=== PATIENT | male | born 1995 | race Caucasian/White ===

== ENCOUNTER 2022-05-05 12:14 | Emergency (ER) | payer OTHER, SELFPAY ==
--- NOTE | ~2022-05-05 | XR_ITS ---
EXAMINATION: XR HAND, RIGHT CLINICAL INFORMATION: Foreign body of right hand. COMPARISON: None available. TECHNIQUE: PA, lateral, and oblique views of the right hand. FINDINGS: Bones, joints and soft tissues the right hand are unremarkable. No evidence of a radiopaque foreign body or soft tissue gas. No fracture or subluxation in the hand or wrist. Incidentally noted is 0.5 cm of ulna negative variance XR/XR hand RT 2V IMPRESSION: * There are no radiographically visible foreign bodies. * No acute osseous injury.
[2022-05-05 12:19] VITALS: BP 155/95; PULSE 67; RESP 18; TEMP 36.6; O2SAT 98; BMI 35.8
--- NOTE | 2022-05-05 12:20 | ED.UPPEXIN ---
HPI - Extremity Injury (Upper) General Chief Complaint: Wound/Laceration <ANTHONY Denton Last Filed: 05/05/22 12:22> Stated Complaint: Wood chip in hand <ANTHONY Denton - Last Filed: 05/05/22 12:22> Time Seen by Provider: 05/05/22 12:24 <ANTHONY Denton - Last Filed: 05/05/22 12:22> Source: patient and RN notes reviewed <ANTHONY Chicas Last Filed: 05/05/22 14:16> Mode of arrival: ambulatory <ANTHONY Chicas Last Filed: 05/05/22 14:16> Limitations: no limitations <ANTHONY Chicas Last Filed: 05/05/22 14:16> History of Present Illness HPI narrative: This is a 27-year-old male presents to the emergency department today with complaints of a new foreign body in his right hand since today. Patient reports that while he was working today, a large splinter became lodged into his right hand. He states that the wood chip went through his hand, he tried to remove the splinter however upon each attempt he fell pain shooting down into the fingertips of his right 2nd finger. He states that this browning is pressure treated. He is able to move his right hand and his right 2nd digit without any complications. No other complaints or concerns at this time. <ANTHONY Chicas - Last Filed: 05/05/22 14:16> MD complaint: injury to: hand <ANTHONY Chicas Last Filed: 05/05/22 14:16> Onset (ago): hour(s) <ANTHONY Chicas Last Filed: 05/05/22 14:16> Other injuries: none <ANTHONY Chicas Last Filed: 05/05/22 14:16> Handedness: right <ANTHONY Chicas Last Filed: 05/05/22 14:16> Place: work <ANTHONY Chicas Last Filed: 05/05/22 14:16> Severity: moderate <ANTHONY Chicas Last Filed: 05/05/22 14:16> Relieving factors: rest <ANTHONY Chicas - Last Filed: 05/05/22 14:16> Exacerbating factors: movement of extremity <ANTHONY Chicas - Last Filed: 05/05/22 14:16> Associated symptoms: suspects foreign body <ANTHONY Chicas - Last Filed: 05/05/22 14:16> Related Data Home Medications: Previous Rx's Medication Instructions Recorded amoxicillin 875 mg-potassium 1 tab PO BID 7 days #14 tabs 05/05/22 clavulanate 125 mg tablet <ANTHONY Denton - Last Filed: 05/05/22 12:22> Allergies/Adverse Reactions: Allergies Allergy/AdvReac Type Severity Reaction Status Date / Time No Known Allergies Allergy Verified 05/05/22 12:20 <ANTHONY Denton - Last Filed: 05/05/22 12:22> Review of Systems Review of Systems: Yes all other systems are reviewed and are negative <ANTHONY Chicas - Last Filed: 05/05/22 14:16> [facility] Social History Social History: Social History Advance Directives: No Advance Directives Information Provided: No <ANTHONY Denton - Last Filed: 05/05/22 12:22> Physical Exam Vital Signs: Vital Signs: Last Vital Signs Temp 98 F 05/05/22 12:19 Pulse 67 05/05/22 12:19 Resp 18 05/05/22 12:19 BP 155/95 H 05/05/22 12:19 Pulse Ox 98 05/05/22 12:19 BMI result Body Mass Index 35.8 <ANTHONY Denton - Last Filed: 05/05/22 12:22> Vital Signs: Last Vital Signs Temp 98 F 05/05/22 12:19 Pulse 67 05/05/22 12:19 Resp 18 05/05/22 12:19 BP 155/95 H 05/05/22 12:19 Pulse Ox 98 05/05/22 12:19 BMI result Body Mass Index 35.8 <ANTHONY Chicas - Last Filed: 05/05/22 14:16> Appearance: Alert. Oriented X3. No acute distress. HEENT: normal inspection Skin: Right hand, there is a a 3cm wood chip puncturing the palmar aspect, approximately 3cm inferiorly to the second proximal phalanx, no active bleeding or laceration noted. CVS: Normal heart rate and rhythm. Pulses normal. Respiratory: No respiratory distress. Skin: Skin warm and dry. Normal skin color. Normal skin turgor. No rashes. Neuro: Oriented X 3. No motor deficit. No sensory deficit. <ANTHONY Chicas - Last Filed: 05/05/22 14:16> Course Course Course Narrative: RME--27 yo M w/no sig PMHx c/o food stuck in right hand s/p moving lumber at work [employer]. States tried to get wood out on his own however was too painful. Last tetanus unknown. Small piece of wood sticking out of right hand palmar aspect between 1st and 2nd digit. Tender to palpation. Patient requesting area to be numbed X-ray, Lido, Tdap ordered <ANTHONY Denton - Last Filed: 05/05/22 12:22> Medications Administered Discontinued Medications Generic Name Dose Route Start Last Admin Trade Name Freq PRN Reason Stop Dose Admin Diphtheria/Tetanus/Acell Pertussis 0.5 ml 05/05/22 12:20 05/05/22 12:53 Diphth,Pertus(Acell),Tet Adult 0.5 Ml Syringe IM 05/05/22 12:21 0.5 ml .ONCE ONE Administration Lidocaine HCl 5 ml 05/05/22 12:20 05/05/22 12:53 Lidocaine Hcl 1 % Mpf 5 Ml Vial SUBCUT 05/05/22 12:21 5 ml ONCE ONE Administration <ANTHONY Denton - Last Filed: 05/05/22 12:22> Medications Administered Discontinued Medications Generic Name Dose Route Start Last Admin Trade Name Freq PRN Reason Stop Dose Admin Diphtheria/Tetanus/Acell Pertussis 0.5 ml 05/05/22 12:20 05/05/22 12:53 Diphth,Pertus(Acell),Tet Adult 0.5 Ml Syringe IM 05/05/22 12:21 0.5 ml .ONCE ONE Administration Lidocaine HCl 5 ml 05/05/22 12:20 05/05/22 12:53 Lidocaine Hcl 1 % Mpf 5 Ml Vial SUBCUT 05/05/22 12:21 5 ml ONCE ONE Administration <ANTHONY Chicas - Last Filed: 05/05/22 14:16> Medical Decision Making Medical Decision Making MDM Narrative: 27-year-old male presents to the emergency department for evaluation puncture wound to his right hand since today. X-rays show no visible foreign bodies, no acute osseous injury. Foreign body successfully removed from right hand, see procedure note. Patient tolerated procedure well without any complications or concerns. Tetanus immunization updated in department today. Will treat prophylactically with antibiotics to prevent secondary infection. Hand soaked in Betadine, hydrogen peroxide, and saline for 10 minutes post foreign body removal. Wound dressed with bacitracin and dry bandage. Advised to return with any signs of infection. Patient understands and agrees with plan. <ANTHONY Chicas - Last Filed: 05/05/22 14:16> Differential Diagnosis Differential Diagnoses: The differential diagnosis associated with the presentation includes <ANTHONY Chicas - Last Filed: 05/05/22 14:16> Foreign body, cellulitis, puncture wound, laceration <ANTHONY Chicas - Last Filed: 05/05/22 14:16> Independent Interpretation I performed an independent interpretation of an: Plain X-Ray <ANTHONY Chicas - Last Filed: 05/05/22 14:16> Interpretation: X-ray reviewed with no obvious foreign body, no bony abnormality. <ANTHONY Chicas Last Filed: 05/05/22 14:16> Radiology Impression Discussion of test interpretation with radiology: I have reviewed the radiologist's reading. <ANTHONY Chicas - Last Filed: 05/05/22 14:16> Radiologist Impression: EXAMINATION: XR HAND, RIGHT CLINICAL INFORMATION: Foreign body of right hand.? COMPARISON: None available.? TECHNIQUE: PA, lateral, and oblique views of the right hand. FINDINGS: Bones, joints and soft tissues the right hand are unremarkable. No evidence of a radiopaque foreign body or soft tissue gas. No fracture or subluxation in the hand or wrist. Incidentally noted is 0.5 cm of ulna negative variance? XR/XR hand RT 2V IMPRESSION: *? There are no radiographically visible foreign bodies. *? No acute osseous injury. <ANTHONY Chicas - Last Filed: 05/05/22 14:16> Prescription Management I considered prescription management with: Antibiotic <ANTHONY Chicas - Last Filed: 05/05/22 14:16> Procedures Foreign Body Removal Time Out Performed: yes <ANTHONY Chicas - Last Filed: 05/05/22 14:16> Site: right and hand <ANTHONY Chicas - Last Filed: 05/05/22 14:16> Description of foreign body: other (woodchip ) <ANTHONY Chicas - Last Filed: 05/05/22 14:16> Sedation/Analgesia: other (5cc 1% lidocaine) <ANTHONY Chicas - Last Filed: 05/05/22 14:16> Technique: removal with forceps <ANTHONY Chicas - Last Filed: 05/05/22 14:16> Confirmed by:: direct visualization and radiograph <ANTHONY Chicas - Last Filed: 05/05/22 14:16> Complications: none <ANTHONY Chicas - Last Filed: 05/05/22 14:16> Post-procedure exam: awake, alert <ANTHONY Chicas - Last Filed: 05/05/22 14:16> Neurovascular: normal distal pulse, normal capillary fill and distal light touch sensation intact <ANTHONY Chicas - Last Filed: 05/05/22 14:16> Critical Care Time Critical Care Time Critical Care Time: No <ANTHONY Chicas - Last Filed: 05/05/22 14:16> Discharge Plan Discharge Clinical Impression: Foreign body in hand, Puncture wound of hand <ANTHONY Denton Last Filed: 05/05/22 12:22> Patient Disposition: Home, Self-Care <ANTHONY Denton Last Filed: 05/05/22 12:22> Instructions: Puncture Wound (ED) <ANTHONY Denton - Last Filed: 05/05/22 12:22> Additional Instructions: Your x-rays showed no bony abnormalities. We successfully removed the wood chip from your right hand. You received an updated tetanus immunization. Keep wound clean and dry and watch for any signs of infection including but not limited to increased redness, swelling, fevers or chills. Take prescribed antibiotics as directed. If you develop new or worsening symptoms call 911 or come back to the ER for further evaluation. <ANTHONY Denton - Last Filed: 05/05/22 12:22> Prescriptions: New amoxicillin-pot clavulanate 875-125 mg tablet 1 tab PO BID 7 Days Qty: 14 0RF <ANTHONY Denton - Last Filed: 05/05/22 12:22> Interventions: ED Discharge Assessment Last Done: 05/05/22 13:42 <ANTHONY Denton - Last Filed: 05/05/22 12:22> Discharge Date/Time: 05/05/22 13:43 <ANTHONY Denton - Last Filed: 05/05/22 12:22>
[2022-05-05] MEDS: Lidocaine HCl 1 % MPF 5 ML VIAL SUBCUT (12:53)
[2022-05-05] MEDS: Diphth,Pertus(ACell),Tet Adult 0.5 ML SYRINGE IM (12:53)
== END 2022-05-05 13:43 | disposition home or self-care (01) ==
PROVIDERS: Emergency Provider Emergency Medicine
DX: S61.441A Puncture wound with foreign body of right hand, initial encounter (principal); Y93.H2 Activity, gardening and landscaping; Y92.017 Garden or yard in single-family (private) house as the place of occurrence of the external cause; Y99.9 Unspecified external cause status
CPT/HCPCS: 64450; 73120; 90471; 90715; 99282; 99284